=== PATIENT | female | born 1950 | race Caucasian/White ===

== ENCOUNTER 2025-02-11 09:33 | Inpatient (IN) | payer MEDICARE ==
[~2025-02-11 09:33] MED LIST: Iopamidol 370 76% 100 ML VIAL ONE
[2025-02-11 10:03] LABS: Hematocrit 46.3 % (36.0-47.0); Hemoglobin 17.0 g/dL (12.0-16.0); Mean Corpuscular Hemoglobin 30.3 pg (27.0-31.0); Mean Corpuscular Volume 82.5 fl (78.0-98.0); Platelet Count 135 10x3/uL (130-400); Red Blood Cell (RBC) Count 5.62 mill/uL (4.20-5.40); White Blood Cell (WBC) Count 4.8 10x3/uL (4.8-10.8)
[2025-02-11 10:12] LABS: ALT (SGPT) 40 U/L (Less than 34); AST (SGOT) 49 U/L (11-34); Albumin 4.3 g/dL (3.1-4.5); Alkaline Phosphatase 105 U/L (40-110); Anion Gap 18 mmol/L (10-20); BUN (Urea Nitrogen) 42 mg/dL (9.8-20.1); Bilirubin, Total 0.5 mg/dL (0.3-1.2); Calc. Creatinine Clearance 0 mL/min (70-130); Calcium 9.9 mg/dL (7.8-10.44); Carbon Dioxide 24 mmol/L (23-31); Chloride 100 mmol/L (98-107); Globulin 3.3 g/dL (2.4-3.5); Glucose 120 mg/dL (83-110); Magnesium 2.2 mg/dL (1.6-2.6); Potassium 3.4 mmol/L (3.5-5.1); Sodium 139 mmol/L (136-145)
[2025-02-11 10:25] LABS: #Basophils 0.1 thou/uL (0.0-0.2); #Eosinophils 0.0 thou/uL (0.0-0.7); #Lymphocytes 1.0 thou/uL (1.20-3.40); #Monocytes 0.5 thou/uL (0.11-0.59); #Neutrophils 3.1 thou/uL (1.40-6.50); %Basophils 2.5 % (0.0-1.0); %Eosinophils 0.1 % (0.0-10.0); %Lymphocytes 20.7 % (21.0-51.0); %Monocytes 11.1 % (0.0-10.0); %Neutrophils 65.6 % (42.0-75.0)
[2025-02-11 10:33] LABS: MDiff Complete? YES
[2025-02-11] MEDS: Ondansetron PF 4 MG/2 ML Vial ONE ×2 (13:55→16:09)
[2025-02-11] MEDS: HYDROmorphone 0.5 MG/0.5 ML SYRINGE ONE (13:55)
[2025-02-11] MEDS: Mag-Al Plus 1200/1200/120 MG (30 mL) UDCUP ONE (13:56)
[2025-02-11 14:53] VITALS: BMI 20.2
[2025-02-11] MEDS ORDERED: Acetaminophen 325 MG TAB PO PRN (15:09)
[2025-02-11] MEDS: Oseltamivir 75 MG CAP ONE (16:08)
[2025-02-11] MEDS: Lidocaine Viscous Sol 2% 15 ml UD Cup ONE (16:09)
[2025-02-11 16:21] LABS: Glucose, Urine (Dipstick) Negative (Negative); Leukocyte Negative (Negative); Protein, Urine (Dipstick) Trace mg/dL (Neg-Trace); Specific Gravity, Urine 1.010 (1.005-1.030)
[2025-02-11 16:22] LABS: CAUTI Indications for Culture Fever or rigors; RBC/HPF None Seen HPF (0-3); WBC/HPF 0-3 HPF (0-3)
[2025-02-11 16:23] LABS: Bacteria/HPF 2+ HPF (None Seen); Urine Culture Reflex No No
[2025-02-11] MEDS: Gabapentin 100 MG CAP PO SCH (20:56)
[2025-02-11] MEDS: Lidocaine Viscous Sol 2% 15 ml UD Cup SSW SCH (20:56)
[2025-02-11] MEDS: Mag-Al Plus 1200/1200/120 MG (30 mL) UDCUP PO SCH (20:57)
[2025-02-11] MEDS: Benzonatate 100 MG CAP PO PRN (21:25)
[2025-02-12] MEDS: Ondansetron PF 4 MG/2 ML Vial IVP PRN (02:06)
[2025-02-12 05:25] LABS: Hematocrit 37.4 % (36.0-47.0); Hemoglobin 14.2 g/dL (12.0-16.0); MDiff Complete? YES; Mean Corpuscular Hemoglobin 31.2 pg (27.0-31.0); Mean Corpuscular Volume 82.0 fl (78.0-98.0); Platelet Adequacy Comment Appears Decreased; Platelet Count 116 10x3/uL (130-400); Red Blood Cell (RBC) Count 4.56 mill/uL (4.20-5.40); White Blood Cell (WBC) Count 3.7 10x3/uL (4.8-10.8)
[2025-02-12 05:28] LABS: ALT (SGPT) 25 U/L (Less than 34); AST (SGOT) 35 U/L (11-34); Albumin 3.3 g/dL (3.1-4.5); Alkaline Phosphatase 75 U/L (40-110); Anion Gap 17 mmol/L (10-20); BUN (Urea Nitrogen) 22 mg/dL (9.8-20.1); Bilirubin, Total 0.4 mg/dL (0.3-1.2); Calc. Creatinine Clearance 37 mL/min (70-130); Calcium 8.3 mg/dL (7.8-10.44); Carbon Dioxide 23 mmol/L (23-31); Chloride 105 mmol/L (98-107); Globulin 2.5 g/dL (2.4-3.5); Glucose 83 mg/dL (83-110); Potassium 3.6 mmol/L (3.5-5.1); Sodium 141 mmol/L (136-145)
[2025-02-12] MEDS: DULoxetine 30 MG CAP PO SCH (08:26)
[2025-02-12] MEDS: Pantoprazole 40 MG VIAL IVP SCH (08:29)
[2025-02-12] MEDS: [UNRECOGNIZED DRUG - OTHER] PO SCH (08:32)
[2025-02-12] MEDS: Oseltamivir 75 MG CAP ONE (11:18)
[2025-02-12] MEDS: Mag-Al Plus 1200/1200/120 MG (30 mL) UDCUP ONE ×2 (11:34→17:56)
[2025-02-12] MEDS: Lidocaine Viscous Sol 2% 15 ml UD Cup ONE ×2 (11:35→17:56)
[2025-02-12] MEDS: Lidocaine 10 ML, Aluminum & Magnesium Hydroxide 30 ML SSW SCH (11:35)
[2025-02-12] MEDS: Losartan 50 MG TAB PO SCH ×2 (11:36→20:54)
[2025-02-12] MEDS ORDERED: Gabapentin 100 MG CAP PO PRN (16:27)
[2025-02-13 05:16] LABS: Anion Gap 17 mmol/L (10-20); BUN (Urea Nitrogen) 14 mg/dL (9.8-20.1); Calc. Creatinine Clearance 46 mL/min (70-130); Calcium 8.6 mg/dL (7.8-10.44); Carbon Dioxide 26 mmol/L (23-31); Chloride 99 mmol/L (98-107); Glucose 64 mg/dL (83-110); Potassium 4.5 mmol/L (3.5-5.1); Sodium 137 mmol/L (136-145)
[2025-02-13] MEDS: Losartan 50 MG TAB PO SCH (08:47)
[2025-02-13] MEDS: cloNIDine 0.1 MG TAB PO PRN (12:01)
[2025-02-13] MEDS: Mag-Al Plus 1200/1200/120 MG (30 mL) UDCUP ONE (12:58)
[2025-02-13] MEDS: Lidocaine Viscous Sol 2% 15 ml UD Cup ONE (12:58)
[2025-02-13 14:55] VITALS: BMI 20.2
[2025-02-14 05:21] VITALS: TEMP 97.8
[2025-02-14 09:13] VITALS: BP 160/70
[2025-02-14] MEDS: [UNRECOGNIZED DRUG - OTHER] PO SCH (10:09)
== END 2025-02-14 11:40 | disposition home or self-care (01) | DRG 153 ==
LOC: BURERS 09:33 → BURMED 11:33 → OBSVTOIN 02-12 16:10
PROVIDERS: ADMIT Family Medicine; ATTEND Family Medicine
DX: J11.1 Influenza due to unidentified influenza virus with other respiratory manifestations (principal); N17.9 Acute kidney failure, unspecified; J44.1 Chronic obstructive pulmonary disease with (acute) exacerbation; E86.0 Dehydration; I10 Essential (primary) hypertension; E03.9 Hypothyroidism, unspecified; E11.22 Type 2 diabetes mellitus with diabetic chronic kidney disease; J45.909 Unspecified asthma, uncomplicated; K20.90 Esophagitis, unspecified without bleeding; Z79.899 Other long term (current) drug therapy; Z79.890 Hormone replacement therapy
CPT/HCPCS: 36415; 71046; 74177; 80048; 80053; 81001; 83605; 83690; 83735; 85025; 96361; 96374; 96375; 96376; G0378; J1171; J1630; J2405; J2470; J7030; Q9967